=== PATIENT | male | born 1975 | race Caucasian/White ===

== ENCOUNTER 2024-03-15 11:04 | Outpatient (CLI) | payer OTHER, SELFPAY ==
--- NOTE | ~2024-03-15 | XR_ITS ---
Left Shoulder Technique: AP and scapular Y views were obtained. Clinical History: Pain Findings: No fracture or dislocation is seen. Osseous alignment is anatomic. The glenohumeral and acr omioclavicular joint spaces are preserved. Soft tissues are unremarkable. Impression: Unremarkable left shoulder radiographs. Reviewed, dictated and finalized at [facility]. HER MACHINE Impression: Unremarkable left shoulder radiographs.
== END 2024-03-15 11:05 | disposition home or self-care (01) ==
LOC: CHSIMG 11:05
PROVIDERS: PCP Nurse Practitioner Family; Visit Provider Nurse Practitioner Family
DX: M25.512 Pain in left shoulder (principal)
CPT/HCPCS: 73030

== ENCOUNTER 2024-05-29 08:52 | Outpatient (RCR) | payer OTHER, SELFPAY ==
--- NOTE | 2024-05-29 09:58 | PTOPEVAL1 ---
Assessment and note entered by Che Su DPT Evaluation Information Diagnosis L shoulder pain ICD-10 Condition Codes (PT) Pain in left shoulder M25.512 Onset 05/22/24 Subjective Information Patient reports in Feb 2024 he developed L shoulder pain. He reports he tried to do exercises with some improvement but pain was still present. He reports he got 2 steroid injections recently and has noticed an improvement but is still limited. He reports he is unable to bear weight through the L arm, make quick movements of the L UE, lifting and reaching behind his back. He reports he is not currently working. He reports he does do house hold and yard work. Reported Pain Level Pain Score 1: Self Report Assessment PT Clinical Summary Mr. Albarran is a 49 year old male who presents to PT with L shoulder pain. He demonstrates decreased L shoulder strength, decreased L shoulder ROM, and impaired scapular mechanics impairing his ability to lift over head, complete dressing tasks , and bear weight through the L UE. He would benefit from skilled PT to address impairments and return to PLOF. Plan of Care Interventions Electrical Stimulation,Hot Pack/Cold Pack,Manual Therapy,Neuro Re-education,Patient/Caregiver Education,Therapeutic Activities,Therapeutic Exercise PT Services Indicated Yes Treatment Frequency and 2x weekly for 10 visits Duration These treatments will address the objective and functional deficits as defined above. The patient will be advanced safely and appropriately in order for the patient to progress towards his/her prior level of function. Additional exercises will be introduced and as well as a comprehensive home exercise program upon discharge, if needed, ?to ensure carryover of functional gains achieved in the clinic. This treatment plan has been reviewed and agreement upon by the patient.
--- NOTE | 2024-07-03 15:12 | PTOPDC ---
Assessment and note entered by Che Su DPT Evaluation Information Assessment Status Discharge Diagnosis L shoulder pain ICD-10 Condition Codes (PT) Pain in left shoulder M25.512 Onset 05/22/24 Subjective Information Patient reports his ROM has improved and pain is not as high. He reports he is able to bear weight through UE, improved ability to reach over head and improved lifting ability. He reports he is independent with HEP Reported Pain Level Pain Score 1: Self Report Assessment PT Clinical Summary Mr. Albarran was seen for 10 visits of skilled PT with great progress towards goals. He met goals for strength, HEP, and flexion ROM. He continues to show restriction with IR reach. He reports improved ability to bear weight through his L UE, reaching over head and behind his back and lifting . He is independent with HEP and is appropriate for DC at this time. Plan of Care PT Services Indicated No
== END 2024-07-03 15:14 | disposition home or self-care (01) ==
LOC: CHSPT 08:52
PROVIDERS: PCP Nurse Practitioner Family; Visit Provider Nurse Practitioner Family
DX: M25.512 Pain in left shoulder (principal)
CPT/HCPCS: 97110; 97112; 97140; 97150; 97161; 97530